=== PATIENT | male | born 1990 | race Caucasian/White ===

== ENCOUNTER 2022-03-27 15:45 | Emergency (ER) | payer MEDICAID, SELFPAY ==
[2022-03-27 15:46] VITALS: BP 144/88; PULSE 70; RESP 18; TEMP 36.3; O2SAT 99; BMI 36.9
--- NOTE | 2022-03-27 17:04 | ED.RN ---
PATIENT IN SECOND TRIAGE ROOM, CALLS RN INTO ROOM. PATIENT STATES HE IS FEELING BETTER AND HE DOES NOT WANT TO BE SEEN. PATIENT STATES HE THINKS HE HAD A PANIC ATTACK. PATIENT STATES HE HAS CALLED FOR A RIDE. IV REMOVED. PATIENT INSTRUCTED TO COME BACK IN IF HE WORSENS. PATIENT STATES HE UNDERSTANDS.
== END 2022-03-27 16:27 | disposition left against medical advice (07) ==
DX: Z53.21 Procedure and treatment not carried out due to patient leaving prior to being seen by health care provider (principal)
CPT/HCPCS: 99283

== ENCOUNTER 2022-10-26 17:17 | Emergency (ER) | payer MEDICAID, SELFPAY ==
[2022-10-26 17:18] VITALS: BP 146/100; PULSE 102; RESP 14; TEMP 36.1; O2SAT 98; BMI 37.8
--- NOTE | 2022-10-26 17:34 | CT_ITS ---
STUDY: CT BRAIN WITHOUT CONTRAST REASON FOR EXAM: Male, 31 years old. head injury RADIATION DOSAGE (If Supplied By Facility): CTDIvol = ( 44.99 ) mGy, DLP = ( 745.49 ) mGycm TECHNIQUE: Transaxial CT imaging of the brain was performed without administration of intravenous contrast material. Individualized dose optimization techniques were used for this CT. COMPARISON: No relevant priors. FINDINGS: Normal soft tissue structures. Normal calvarium. Normal size ventricles and extra-axial spaces for the patient''s age. Normal white matter tracts of the cerebral hemispheres. Normal basal ganglia and thalami. Normal brainstem. Normal cerebellum. There is no intracranial hemorrhage. There are no findings of an acute ischemic infarction. Normal visualized paranasal sinuses. CT/Brain/Head without Contrast IMPRESSION: Normal unenhanced CT scan of the brain. Electronically Signed: Bruno Patnio MD at 18:24 EDT ,
--- NOTE | 2022-10-26 17:36 | EDS_ITS ---
HPI <MARYLOU Navarro - Last Filed: 10/26/22 18:34> History of Present Illness Chief Complaint: Head Injury Narrative Narrative: Patient was at [employer] around 4:30 pm carrying his order out when he tripped over a rolled up rug and struck his head on the metal railing. He states he saw black and spots and was dazed for a couple seconds. He went to his truck but was not feeling well and walked back then and went to the bathroom and vomited 2 or 3 times. States he called a body to drive him here. He has a headache and light sensitivity. He denies vision changes or focal motor or sensory changes. No blood thinners. PFSH <MARYLOU Navarro Last Filed: 10/26/22 18:34> PFSH Allergy/AdvReac Type Severity Reaction Status Date / Time No Known Allergies Allergy Verified 10/26/22 17:18 Social History Smoking Status: Never smoker ROS <MARYLOU Navarro Last Filed: 10/26/22 18:34> ROS ED ROS Narrative Constitutional: Negative for fever, chills, malaise. Eyes: Negative for visual change. GI: Positive for nausea, vomiting. Neuro: Positive for headache, negative for motor/sensory dysfunction. Skin: Negative for wound. EXAM <MARYLOU Navarro Last Filed: 10/26/22 18:34> Physical Exam Narrative Exam Narrative: CONST: Patient sitting in no acute distress. EYES: Normal inspection. PERRLA, EOMI. HEAD: Small left frontoparietal hematoma no deformity or crepitus. No abrasions or lacerations. No raccoon eyes or galindo sign, no nasal septal hematoma or hemotympanum, no CSF otorrhea or rhinorrhea. NECK: Normal inspection. No meningismus. RESP: No respiratory distress, CTAB. CVS: Regular rate and rhythm, no murmur, no gallop. SKIN: Color normal, no rash, warm, dry, intact. EXTREMITIES: Normal appearance, no pedal edema. NEURO: Oriented x4. 5/5 upper and lower extremity strength, normal finger-nose bilaterally. PSYCH: Normal affect. Const Vital Signs: 10/26/22 17:18 10/26/22 17:45 Temperature 97 F L Temperature Source Temporal Pulse Rate 102 H Respiratory Rate 14 Respiratory Effort Normal Non-Labored Respiratory Depth Normal Respiratory Pattern Normal Blood Pressure 146/100 H Blood Pressure Mean 115 Pulse Ox 98 Oxygen Delivery Method Room Air Room Air <Dr. Constantino Reddy, DO - Last Filed: 10/26/22 18:30> Physical Exam Const Vital Signs: 10/26/22 17:18 10/26/22 17:45 Temperature 97 F L Temperature Source Temporal Pulse Rate 102 H Respiratory Rate 14 Respiratory Effort Normal Non-Labored Respiratory Depth Normal Respiratory Pattern Normal Blood Pressure 146/100 H Blood Pressure Mean 115 Pulse Ox 98 Oxygen Delivery Method Room Air Room Air MDM <Wanda Paredes PA - Last Filed: 10/26/22 18:34> MDM MDM Narrative Medical decision making narrative: Patient had mechanical fall with closed head injury. Now having headache and vomiting. He is awake and alert. GCS 15. Has a small left scalp hematoma but no signs of basilar skull fracture. Neurologically intact. CT scan of the brain was obtained and is negative for acute process. Patient's symptoms are consistent with a concussion and I ordered Advil here. We discussed taking [id number] pain relievers, follow-up with his doctor, and return precaut ions. He was discharged in stable condition. Differential: Concussion, scalp contusion, skull fracture, intracranial bleed Radiography Diagnostic Testing: Clinical Impression(s) from Imaging Studies Brain CT 10/26/22 17:34 IMPRESSION: Normal unenhanced CT scan of the brain. Electronically Signed: Bruno Patino MD at 18:24 EDT Reading Location ID and State: [id number] / [employer] , Service support , ED attending interpretation of brain CT shows no evidence of skull fracture or large hemorrhage <Dr. Constantino Reddy, DO - Last Filed: 10/26/22 18:30> MDM Radiography Diagnostic Testing: Clinical Impression(s) from Imaging Studies Brain CT 10/26/22 17:34 IMPRESSION: Normal unenhanced CT scan of the brain. Electronically Signed: Bruno Patino MD at 18:24 EDT , Treatment and Re-Evaluation :: I have personally performed a face to face assessment of the patient and have reviewed the GILL Note. I performed a substantive portion of the visit including all aspects of the following. My quintero findings include: History: Patient presents after head injury that occurred today. Patient was walking out of [employer] when he tripped over a carpet. Patient states he fell forward and hit his head on a metal pole. Patient thinks he was unconscious for a couple seconds. Patient states he did have a couple episodes of vomiting after this. Patient denies any blurry vision or double vision. Patient denies any neck pain or chest pain. Patient denies any paresthesias or weakness. Patient denies any other injuries. Exam: Vital signs are stable. Patient is afebrile. Patient is in no acute dist ress. There is mild tenderness over the left parietal area. There is no bony crepitance or step-off. There is some mild edema noted. Cranial nerves II through XII are intact. Strength is 5/5 bilaterally upper and lower extremities. There are no sensory deficits noted. Oral mucosa is pink and moist. Neck is supple. Trachea is midline. There is no JVD or lymphadenopathy. Medical Decision Making: Differential diagnosis includes concussion and intracranial bleeding. CT scan of the brain will be obtained to assess for intracranial bleeding. CT scan of the brain was obtained. There is no evidence of intracranial bleeding. This was interpreted by the radiologist and was also independently reviewed by myself. Patient was advised of his findings. Patient was given head injury instructions. Patient was instructed to follow-up with his primary care physician in 5 to 7 days. Patient understood and was agreeable with the plan. All questions were answered. Discharge Plan Triage Chief Complaint: Head Injury ED Midlevel Provider: Wanda Paredes ED Provider: Constantino Reddy Dx/Rx/DC Orders Clinical Impression: Concussion, Closed head injury, Fall Instructions: ED Concussion Referrals: Care Physician,No Primary [Non-Staff] - 5-7 Days Activity Restrictions/Additional Instructions: Take Tylenol ibuprofen as needed. If symptoms are not improving follow-up with your primary care doctor. If you develop any worsening headache, recurrent vomiting, confusion etc. come back to the ER. Disposition Disposition: Home, Self Care
[2022-10-26 18:32] VITALS: BP 128/78; PULSE 78; RESP 16; O2SAT 97
== END 2022-10-26 18:52 | disposition home or self-care (01) ==
PROVIDERS: Emergency Provider Emergency Medicine; Visit Provider Emergency Medicine
DX: S06.0X0A Concussion without loss of consciousness, initial encounter (principal); R11.10 Vomiting, unspecified; W01.198A Fall on same level from slipping, tripping and stumbling with subsequent striking against other object, initial encounter
CPT/HCPCS: 70450; 99282

== ENCOUNTER → 2022-10-28 | Outpatient (CLI) | payer MEDICAID, SELFPAY ==
--- NOTE | 2022-10-28 10:09 | CT_ITS ---
STUDY: CT BRAIN WITHOUT CONTRAST REASON FOR EXAM: Male, 31 years old. [place] AFTER HEAD INJURY RADIATION DOSAGE (If Supplied By Facility): CTDIvol = ( 44.99 ) mGy, DLP = ( 796.11 ) mGycm TECHNIQUE: Transaxial CT imaging of the brain was performed without administration of intravenous contrast material. Individualized dose optimization techniques were used for this CT. COMPARISON: Comparison is made with prior examination dated October 26, 2022. FINDINGS: Normal soft tissue structures. Normal calvarium. Normal size ventricles and extra-axial spaces for the patient''s age. Normal white matter tracts of the cerebral hemispheres. Normal basal ganglia and thalami. Normal brainstem. Normal cerebellum. There is no intracranial hemorrhage. There are no findings of an acute ischemic infarction. Normal visualized paranasal sinuses. CT/Brain/Head without Contrast IMPRESSION: Normal unenhanced CT scan of the brain. Electronically Signed: Kale Anthony MD at 11:09 EDT ,
== END | disposition home or self-care (01) ==
PROVIDERS: Referring Provider Nurse Practitioner; Visit Provider Nurse Practitioner
DX: S09.90XA Unspecified injury of head, initial encounter (principal); R27.0 Ataxia, unspecified; G44.311 Acute post-traumatic headache, intractable; X58.XXXA Exposure to other specified factors, initial encounter
CPT/HCPCS: 70450